=== PATIENT | female | born 1980 | race Two or more races ===

== ENCOUNTER 2023-06-20 13:30 | Outpatient (CLI) | payer OTHER | END 2023-06-20 16:40 | disposition home or self-care (01) | LOC: PRENATAL 13:30 | PROVIDERS: ATTEND Obstetrics & Gynecology Maternal & Fetal Medicine | DX: O35.9XX0 Maternal care for (suspected) fetal abnormality and damage, unspecified, not applicable or unspecified (principal); O35.3XX0 Maternal care for (suspected) damage to fetus from viral disease in mother, not applicable or unspecified; O44.00 Complete placenta previa NOS or without hemorrhage, unspecified trimester; Z3A.20 20 weeks gestation of pregnancy ==

== ENCOUNTER 2023-08-17 13:37 | Outpatient (CLI) | payer OTHER | END 2023-08-17 13:38 | disposition home or self-care (01) | LOC: PRENATAL 13:37 | PROVIDERS: ATTEND Obstetrics & Gynecology Maternal & Fetal Medicine | DX: O26.849 Uterine size-date discrepancy, unspecified trimester (principal); O09.529 Supervision of elderly multigravida, unspecified trimester; Z3A.28 28 weeks gestation of pregnancy ==

== ENCOUNTER 2023-09-13 11:09 | Inpatient (IN) | payer OTHER ==
[~2023-09-13] VITALS: Ht 157.5 cm; Wt 72.6 kg
[2023-09-13] MEDS ORDERED: AMPICILLIN SODIUM 2,000 MG VIAL ONE (11:18)
[2023-09-13] MEDS ORDERED: BETAMETHASONE ACETATE,SOD PHOS 30 MG/5 ML ML ONE (11:20)
[2023-09-13] MEDS ORDERED: ADULT LOW DOSE81 M1 (11:27)
[2023-09-13] MEDS ORDERED: PRENATAL + DHA1 EAC1 (11:27)
[2023-09-13] MEDS ORDERED: BETAMETHASONE ACETATE,SOD PHOS 30 MG/5 ML ML IM ONE (11:45)
[2023-09-13] MEDS ORDERED: AMPICILLIN SODIUM 2,000 MG VIAL IV SCH (11:45)
[2023-09-13] MEDS ORDERED: NIFEDIPINE 10 MG CAPSULE PO SCH (12:04)
[2023-09-13 12:10] LABS: HEMATOCRIT 35.1 % (36.0-45.00); HEMOGLOBIN 11.7 g/dL (12.0-15.00); MEAN CELL VOLUME 84.2 fL (80.00-100.00); MEAN CORPUSCULAR HEMOGLOBIN 28.1 pg (27.00-32.0); MEAN CORPUSCULAR HGB CONC 33.4 g/dl (32.0-36.0); PLATELET COUNT 255 K/uL (150-450); RED BLOOD COUNT 4.16 M/uL (4.00-6.00); RED CELL DISTRIBUTION WIDTH 14.2 % (11.5-14.5)
[2023-09-13 12:14] LABS: PH,URINE 6.5 (5.0-8.0); URINE APPEARANCE Clear; URINE BILIRRUBIN Negative (NEGATIVE); URINE BLOOD Negative; URINE COLOR Yellow; URINE GLUCOSE Negative (NEGATIVE); URINE LEUKOCYTE Trace; URINE NITRATE Negative; URINE PROTEIN Negative (NEGATIVE); URINE UROBILINOGEN 0.2 E.U./dl
[2023-09-13 12:17] LABS: URINE BACTERIA 2133.1 uL (0.0-1933); URINE EPITHELIAL CELLS 22.1 uL (0.0-38.8); URINE WBC 41.2 uL (0.0-23.2)
[2023-09-13 12:29] LABS: URINE RBC 1.7 uL (0.0-20.8)
[2023-09-13 12:43] LABS: ALBUMIN 2.8 gm/dL (3.4-5.0); BILIRUBIN TOTAL 0.46 mg/dL (0.3-1.2); CALCIUM 9.4 mg/dL (8.5-10.1); CREATININE SERUM 0.48 mg/dL (0.55-1.02); GFR 142.52; GLOBULINA 4.2 G/DL (2.4-3.5); POTASSIUM 3.87 mEq/L (3.5-5.1)
[2023-09-13 12:56] LABS: INR 1.1; PARTIAL THROMBOPLASTIN TIME 26.2 SECONDS (22.0-34.0); PROTHROMBIN TIME 11.5 SECONDS (9.0-11.5)
[2023-09-14] MEDS ORDERED: BETAMETHASONE ACETATE,SOD PHOS 30 MG/5 ML ML IM ONE (11:35)
== END 2023-09-14 13:54 | disposition home or self-care (01) | DRG 833 ==
LOC: LDR 11:09
PROVIDERS: ADMIT Obstetrics & Gynecology; ATTEND Obstetrics & Gynecology
PROC: 4A1HXCZ Monitoring of Products of Conception, Cardiac Rate, External Approach (ICD-10-PCS; principal; 2023-09-13)
PROC: BY4FZZZ Ultrasonography of Third Trimester, Single Fetus (ICD-10-PCS; 2023-09-13)
PROC: BU4CZZZ Ultrasonography of Uterus and Ovaries (ICD-10-PCS; 2023-09-13)
DX: O60.03 Preterm labor without delivery, third trimester (principal); O26.843 Uterine size-date discrepancy, third trimester; O36.8130 Decreased fetal movements, third trimester, not applicable or unspecified; Z3A.32 32 weeks gestation of pregnancy; Z20.822 Contact with and (suspected) exposure to COVID-19

== ENCOUNTER 2023-09-26 14:00 | Outpatient (CLI) | payer OTHER ==
[~2023-09-26 14:00] MED LIST: ADULT LOW DOSE81 M1; PRENATAL + DHA1 EAC1
== END 2023-09-26 14:01 | disposition home or self-care (01) ==
LOC: PRENATAL 14:00
PROVIDERS: ATTEND Obstetrics & Gynecology Maternal & Fetal Medicine
DX: O26.849 Uterine size-date discrepancy, unspecified trimester (principal); O36.8199 Decreased fetal movements, unspecified trimester, other fetus; O09.529 Supervision of elderly multigravida, unspecified trimester; Z3A.34 34 weeks gestation of pregnancy

== ENCOUNTER 2023-10-24 15:35 | Inpatient (IN) | payer OTHER ==
[~2023-10-24] VITALS: Ht 157.5 cm; Wt 73.5 kg
[2023-10-24 16:34] LABS: HEMATOCRIT 32.9 % (36.0-45.00); HEMOGLOBIN 10.7 g/dL (12.0-15.00); MEAN CELL VOLUME 78.6 fL (80.00-100.00); MEAN CORPUSCULAR HEMOGLOBIN 25.6 pg (27.00-32.0); MEAN CORPUSCULAR HGB CONC 32.6 g/dl (32.0-36.0); PLATELET COUNT 179 K/uL (150-450); RED BLOOD COUNT 4.19 M/uL (4.00-6.00); RED CELL DISTRIBUTION WIDTH 16.9 % (11.5-14.5)
[2023-10-24 16:34] LABS: PH,URINE 5.5 (5.0-8.0); URINE APPEARANCE Cloudy; URINE BILIRRUBIN Negative (NEGATIVE); URINE BLOOD Small; URINE COLOR Dark Yellow; URINE GLUCOSE Negative (NEGATIVE); URINE LEUKOCYTE Negative; URINE NITRATE Negative; URINE PROTEIN 30 (NEGATIVE)
[2023-10-24 16:38] LABS: URINE BACTERIA 612.3 uL (0.0-1933); URINE EPITHELIAL CELLS 20.2 uL (0.0-38.8); URINE RBC 9.9 uL (0.0-20.8); URINE WBC 6.1 uL (0.0-23.2)
[2023-10-24 16:49] LABS: INR 1.1; PARTIAL THROMBOPLASTIN TIME 26.5 SECONDS (22.0-34.0); PROTHROMBIN TIME 11.5 SECONDS (9.0-11.5)
[2023-10-24 16:53] LABS: ALBUMIN 2.5 gm/dL (3.4-5.0); BILIRUBIN TOTAL 0.38 mg/dL (0.3-1.2); CALCIUM 9.2 mg/dL (8.5-10.1); CREATININE SERUM 0.68 mg/dL (0.55-1.02); GFR 95.35; GLOBULINA 3.8 G/DL (2.4-3.5); POTASSIUM 3.88 mEq/L (3.5-5.1); TOTAL PROTEIN 6.3 gm/dL (6.4-8.2)
[2023-10-24] MEDS ORDERED: RINGERS SOLUTION,LACTATED 1,000 ML IV SCH (17:00)
[2023-10-24 17:12] LABS: URINE CRYSTALS FEW /HPF
[2023-10-24] MEDS ORDERED: VALTREX1000 MG PO (23:06)
[2023-10-26] MEDS ORDERED: OXYTOCIN 500 ML IV SCH (15:00)
[2023-10-26] MEDS ORDERED: OXYTOCIN 10 UNITS/ML VIAL ONE (16:28)
[2023-10-26] MEDS ORDERED: ERYTHROMYCIN BASE 3.5 GM OINT...G. OP ONE (16:28)
[2023-10-26] MEDS ORDERED: CHLORHEXIDINE GLUCONATE 120 ML BOTTLE TOP SCH (17:00)
[2023-10-26] MEDS ORDERED: RINGERS SOLUTION,LACTATED 1,000 ML IV SCH (17:00)
[2023-10-26] MEDS ORDERED: OXYTOCIN 1,000 ML IV SCH (17:00)
[2023-10-26] MEDS ORDERED: ERYTHROMYCIN BASE 1 GM TUBE OP SCH (17:00)
[2023-10-26 17:38] LABS: ABG PH 7.348 (7.35-7.45); ABG pCO2 43.7 mmHg (35-45)
[2023-10-26 17:39] LABS: ABG PO2 24.1 mmHg (80-100); SaO2 38.2 %
[2023-10-26 17:40] LABS: BASE EXCESS -2.3 mmol/l; BICARBONATE 23.5 mmol/l (23-25); Tco2 24.8 mmol/l; o2 21 %
[2023-10-26] MEDS ORDERED: PROMETHAZINE HCL 50 MG/ML AMPUL IV SCH (18:00)
[2023-10-26] MEDS ORDERED: OXYTOCIN 10 UNITS/ML VIAL IV ONE (18:00)
[2023-10-26] MEDS ORDERED: SIMETHICONE 125 MG CAPSULE PO SCH (18:00)
[2023-10-26] MEDS ORDERED: ERYTHROMYCIN BASE 1 GM TUBE OP ONE (18:00)
[2023-10-26] MEDS ORDERED: MEPERIDINE HCL/PF 50 MG/ML VIAL IV SCH (18:00)
[2023-10-26] MEDS ORDERED: PROMETHAZINE HCL 50 MG/ML AMPUL ONE (19:22)
[2023-10-26 19:36] LABS: HEMATOCRIT 33.1 % (36.0-45.00); HEMOGLOBIN 10.7 g/dL (12.0-15.00); MEAN CORPUSCULAR HEMOGLOBIN 25.9 pg (27.00-32.0); MEAN CORPUSCULAR HGB CONC 32.4 g/dl (32.0-36.0); PLATELET COUNT 174 K/uL (150-450); RED BLOOD COUNT 4.14 M/uL (4.00-6.00)
[2023-10-27] MEDS ORDERED: IBUprofen 600 MG TABLET PO PRN (10:45)
[2023-10-27] MEDS ORDERED: ACETAMINOPHEN WITH CODEINE 1 UDTAB TABLET PO PRN (10:45)
[2023-10-27] MEDS ORDERED: DOCUSATE SODIUM 100MG CAP PO SCH (17:00)
[2023-10-29] MEDS ORDERED: COLACE100 MG PO (10:04)
[2023-10-29] MEDS ORDERED: ACETAMINOPHEN-1 EAC2 PO (10:04)
[2023-10-29] MEDS ORDERED: IBUPROFEN600 MG PO (10:04)
== END 2023-10-29 12:49 | disposition home or self-care (01) | DRG 787 ==
LOC: LDR 15:35 → OB/GYN 15:35 → LDR 10-26 14:24 → O/R 10-26 16:25 → OB/GYN 10-26 17:00
PROVIDERS: Obstetrics & Gynecology; ADMIT Obstetrics & Gynecology; ATTEND Obstetrics & Gynecology
PROC: 4A1HXCZ Monitoring of Products of Conception, Cardiac Rate, External Approach (ICD-10-PCS; 2023-10-24)
PROC: BY4FZZZ Ultrasonography of Third Trimester, Single Fetus (ICD-10-PCS; 2023-10-25)
PROC: 10D00Z1 Extraction of Products of Conception, Low, Open Approach (ICD-10-PCS; principal; 2023-10-26 17:00)
DX: O36.8330 Maternal care for abnormalities of the fetal heart rate or rhythm, third trimester, not applicable or unspecified (principal); O41.03X0 Oligohydramnios, third trimester, not applicable or unspecified; O26.843 Uterine size-date discrepancy, third trimester; O36.8130 Decreased fetal movements, third trimester, not applicable or unspecified; O99.02 Anemia complicating childbirth; D64.9 Anemia, unspecified; Z3A.38 38 weeks gestation of pregnancy; Z37.0 Single live birth; Z20.822 Contact with and (suspected) exposure to COVID-19